=== PATIENT | female | born 1965 | race Caucasian/White ===

== ENCOUNTER 2024-12-01 08:46 | Outpatient (REF) | payer OTHER, SELFPAY ==
--- OUTSIDE RECORDS SUMMARY | 2024-12-01 08:59 | XMS_ITS | Data Portability ---
Author Organization [facility] Service Address [address] [place] [address] Assessment No assessment recorded. Plan of Treatment Reminders Order Date Submit Date Provider Last Modified By Organization Details Last Modified Time Details Appointments ANNUAL EXAM 2025 09:00A M ANTOINE CARABALLO Not available Not available Not available Lab MMRV immunity, serum or plasma 2024 025 [facility], [address] [place] [address], [id number], 08/11/2024 09:35:03 hbsab (hepatiti s B surface Ab) titer, serum 2024 025 [facility], [address] [place] [address], [id number], 08/11/2024 09:35:03 estradiol , serum 2024 025 [facility], [address] [place] [address], [id number], 08/11/2024 09:35:03 progester one, serum 2024 025 [facility], [address] [place] [address], [id number], 08/11/2024 09:35:02 lh + FSH, serum 2024 025 [facility], [address] [place] [address], [id number], 08/11/2024 09:35:03 estrogen, total, serum 2024 025 [facility], [address] [place] [address], [id number], 08/11/2024 09:35:03 prolactin , serum 2024 025 [facility], [address] [place] [address], [id number], 08/11/2024 09:35:02 testoster one, total, serum 2024 025 [facility], [address] [place] [address], [id number], 08/11/2024 09:35:03 CMP, serum or plasma 2024 025 [facility], [address] [place] [address], [id number], 08/11/2024 09:29:52 CBC w/ auto diff 2024 025 [facility], [address] [place] [address], [id number], 08/11/2024 09:29:52 lipid panel, blood 2024 025 [facility], [address] [place] [address], [id number], 08/11/2024 09:29:53 vitamin D, 25-hydrox y, total, serum 2024 025 [facility], [address] [place] [address], [address], 08/11/2024 09:29:52 TSH + free T4, serum 2024 025 [facility], [address] [place] [address], [id number], 08/11/2024 09:29:53 hemoglobi n A1c, QN, blood 2024 025 [facility], [address] [place] [address], [address], 08/11/2024 09:29:53 vitamin B12 + folate, serum or blood 2024 025 [facility], [address] [place] [address], [id number], 08/11/2024 09:29:53 lh + FSH, serum 2023 024 [facility] (Centralized Electronic Ordering - All Locations), Patient Can Go To The Location Of Their Choice, 08/06/2023 09:17:09 estradiol , serum 2023 024 [facility] (Centralized Electronic Ordering - All Locations), Patient Can Go To The Location Of Their Choice, 08/06/2023 09:17:08 progester one, serum 2023 024 [facility] (Centralized Electronic Ordering - All Locations), Patient Can Go To The Location Of Their Choice, 08/06/2023 09:17:08 prolactin , serum 2023 024 [facility] (Centralized Electronic Ordering - All Locations), Patient Can Go To The Location Of Their Choice, 08/06/2023 09:17:08 CMP, serum or plasma 2023 024 [facility] (Centralized Electronic Ordering - All Locations), Patient Can Go To The Location Of Their Choice, 10/04/2023 16:59:42 CBC w/ auto diff 2023 024 [facility] (Centralized Electronic Ordering - All Locations), Patient Can Go To The Location Of Their Choice, 08/06/2023 09:17:08 lipid panel, blood 2023 024 [facility] (Centralized Electronic Ordering - All Locations), Patient Can Go To The Location Of Their Choice, 10/04/2023 16:59:42 TSH + free T4, serum 2023 024 [facility] (Centralized Electronic Ordering - All Locations), Patient Can Go To The Location Of Their Choice, 10/04/2023 16:59:42 vitamin D, 25-hydrox y, total, serum 2023 024 [facility] (Centralized Electronic Ordering - All Locations), Patient Can Go To The Location Of Their Choice, 08/06/2023 09:17:08 hemoglobi n A1c, QN, blood 2023 024 [facility] (Centralized Electronic Ordering - All Locations), Patient Can Go To The Location Of Their Choice, 08/06/2023 09:17:08 CMP, serum or plasma 2022 023 [facility] (Centralized Electronic Ordering - All Locations), Patient Can Go To The Location Of Their Choice, 07/31/2022 11:15:22 CBC w/ auto diff 2022 023 [facility] (Centralized Electronic Ordering - All Locations), Patient Can Go To The Location Of Their Choice, 07/31/2022 11:15:23 lipid panel, blood 2022 023 [facility] (Centralized Electronic Ordering - All Locations), Patient Can Go To The Location Of Their Choice, 07/31/2022 11:15:23 vitamin D, 25-hydrox y, total, serum 2022 023 [facility] (Centralized Electronic Ordering - All Locations), Patient Can Go To The Location Of Their Choice, 07/31/2022 11:15:23 hemoglobi n A1c, QN, blood 2022 023 [facility] (Centralized Electronic Ordering - All Locations), Patient Can Go To The Location Of Their Choice, 07/31/2022 11:15:23 vitamin B12 + folate, serum or blood 2022 023 [facility] (Centralized Electronic Ordering - All Locations), Patient Can Go To The Location Of Their Choice, 07/31/2022 11:15:22 magnesium , serum or plasma 2022 023 [facility] (Centralized Electronic Ordering - All Locations), Patient Can Go To The Location Of Their Choice, 07/31/2022 11:15:22 TSH + free T4, serum 2022 023 [facility] (Centralized Electronic Ordering - All Locations), Patient Can Go To The Location Of Their Choice, 07/31/2022 11:10:35 CBC w/ auto diff 2020 021 [facility], [address] [place], [address], 02/07/2021 09:45:53 CMP, serum or plasma 2020 021 [facility], [address] [place], [address], 02/07/2021 09:45:53 lipid panel, serum 2020 021 [facility], [address] [place], [address], 02/07/2021 09:45:52 Referral None recorded. Procedures None recorded. Surgeries None recorded. Imaging US, echocardi ogram 2021 022 [email or web address] [facility] (Outt Non-Invasive Cardiology Scheduling), [address] [place], [address], 03/23/2022 08:39:20 exercise stress test 2021 022 [email or web address] 10 [facility] (Outt Non-Invasive Cardiology Scheduling), [address] [place], [address], 04/03/2022 08:47:12 US, carotid artery 2021 022 [facility] (Outt Non-Invasive Cardiology Scheduling), [address] [facility], [place], [address], 03/23/2022 08:39:20 Medication Orders ProAir HFA 90 mcg/actua tion aerosol inhaler 2024 025 [facility], [address] [place] [address], [address], 08/11/2024 09:21:21 epinephri ne 0.3 mg/0.3 mL injection , auto-inje ctor 2024 025 [facility], [address] [place] [address], [address], 08/11/2024 09:21:23 ProAir HFA 90 mcg/actua tion aerosol inhaler 2023 024 [facility], [address] [place] [address], [address], 08/06/2023 09:06:40 epinephri ne 0.3 mg/0.3 mL injection , auto-inje ctor 2023 024 [facility], [address] [place] [address], [id number], 08/06/2023 09:06:39 ProAir HFA 90 mcg/actua tion aerosol inhaler 2022 023 [facility], [address] [place] [address], [address], 07/31/2022 10:58:43 ProAir HFA 90 mcg/actua tion aerosol inhaler 2020 021 [id number], [address] [place] [address], [id number], 02/07/2021 09:39:06 epinephri ne 0.3 mg/0.3 mL injection , auto-inje ctor 2020 021 [id number], [address] [place], [place], [id number], 02/07/2021 09:39:05 Patient TargetsNo targets recorded. Patient Instructions Encounter Date Encounter Id Patient Instructions Last Modified By Organization Details Last Modified Time 02/07/2021 [id number] pulse oximetry* [email or web address] Not available 02/07/2021 09:38:58 07/31/2022 [id number] pulse oximetry* [email or web address] Not available 07/31/2022 10:58:35 Reason for Referral None Reported. Results Created Date Observation Date Name Description Value Unit Range Abnormal Flag Note LastModifiedBy Organization Detail LastModifiedTime 02/08/20 21 02/07/2021 pulse oxime try* Result 98 Not Available [facility] [address] [facility] [address], [place], [address], 02/07/2021 09:33:12 07/31/19 23 07/31/2022 pulse oxime try* Result 98 Not Available [facility] [address] [facility] [address], [place], [address], 07/29/2022 11:28:11 11/22/19 22 11/21/2021 MAMMO , scree amalia, digit al, bilat eral No observ ation record ed. [email or web address] [facility] [address] [place] [address], [address], 11/21/2021 10:15:18 Result Notes None recorded. Problems Name Problem SNOMED Code Status Onset Date Resolution Date Notes Provider Name and Address Organization Details Recorded Time Hypothyroi dism 68796370 Active 2017 Not Available [facility] 12:10:18 Scoliosis of thoracic spine 149773953 Active 2017 Not Available [facility] 12:10:18 Asthma 842390525 Active 2018 Not Available [facility] 07/31/202 1 12:10:18 Menopause Active 2023 ANTOINE CARABALLO [address] [place], [address], [facility] 4 09:09:39 Acute sinusitis 08482113 Active 2023 ANTOINE CARABALLO [address] [place], [address], [facility] 4 11:03:26 Perimenopa usal disorder 884725920 Active 2024 ANTOINE CARABALLO [address] [place], [address], [facility] 5 09:32:32 Essential hypertensi on 20209910 Active 2017 Not Available [facility] 1 12:10:18 Obesity 896546537 Active 2017 Not Available [facility] 12:10:18 Problem Notes None recorded. Procedures Surgical History Date Name Laterality Status Provider Name and Address Organization Details Recorded Time 03/17/19 66 Most Recent Mammogram completed Ruthannliliana Ragsdale [facility] 02/21/2019 15:21:17 Tonsillectomy completed Ruthannliliana Ragsdale [facility] 02/21/2019 15:23:48 excision of cyst completed Ruthannliliana [facility] 02/21/2019 15:24:17 Imaging Results Imaging Date Name Status LastModified by Organiz ation Details LastModified Time 11/21/2021 MAMMO, screening, digital, bilateral completed [email or web address] [facility] [address] [place] [address], [address], 11/21/2021 10:15:18 Procedure Notes None recorded. Medical Equipment None Reported. Allergies Allergen ID Allergen Name Allergen Category Reaction Reaction Severity Criticality Documentation Date Start Date Code Code System Note Provider Name and Address Organization Details Recorded Time 1862 Product containin g penicilli n (product) medicatio n rash Not available Not available 02/04/2018 [address] [facility] 8 14:02:58 3295 phenol medicatio n Not available Not available Not available 02/21/2019 144[address] Rx[address] [facility] 9 15:24:35 3296 nickel environme nt Not available Not available Not available 02/21/2019 97493 29 RxNorm [address] [facility] 9 15:24:46 3313 nut - unspecifi ed food anaphylax is Not available Not available 02/22/[id number] [facility] 9 14:23:23 Medications Name Sig Start Date Stop Date Status Note LastModified by Organization Details LastModified Time Erin Thyroid 60 mg tablet TAKE 1 TABLET BY MOUTH DAILY 02/07 completed Not Available Not Available Not Available prednisone 10 mg tablet take 4 tabs x 3 daystake 3 tabs x 3 daystake 2 tabs x 3 daystake 1 tab x 3 days 08/30 completed Not Available Not Available Not Available Erin Thyroid 90 mg tablet TAKE 1 TABLET BY MOUTH ONCE DAILY active Not Available Not Available No t Available azithromyci n 250 mg tablet TAKE 2 TABLETS BY MOUTH ON DAY 1, AND THEN TAKE 1 TABLET BY MOUTH ONCE A DAY ON DAY 2 THROUGH DAY 5 active Not Available Not Available No t Available nystatin 500,000 unit tablet TAKE 2 TABLETS BY MOUTH TWICE DAILY WITH FOOD active Not Available Not Available No t Available lidocaine-p rilocaine 2.5 %-2.5 % topical cream 02/07 completed Not Available Not Available Not Available Erin Thyroid 15 mg tablet TAKE 1 TABLET BY MOUTH EVERY MORNING 02/07 completed Not Available Not Available Not Available epinephrine 0.3 mg/0.3 mL injection, auto-inject or INJECT CONTENTS OF 1 PEN NEEDED FOR ALLERGIC REACTION active Not Available Not Available No t Available lisinopril 10 mg-hydrochl orothiazide 12.5 mg tablet 02/22 completed Not Available Not Available Not Available albuterol sulfate HFA 90 mcg/actuati on aerosol inhaler INHALE 2 PUFFS BY MOUTH EVERY 4 HOURS NEEDED FOR ASTHMA active Not Available Not Available No t Available losartan 50 mg-hydrochl orothiazide 12.5 mg tablet TAKE 1 TABLET BY MOUTH EVERY MORNING 07/31 completed Not Available Not Available Not Available Boostrix Tdap 2.5 Lf unit-8 mcg-5 Lf/0.5 mL intramuscul ar syringe 02/07 completed Not Available Not Available Not Available Benadryl prn active Not Available Not Avai lable Not Available multivitami n active Not Available Not Available Not Available Fluarix Quad (PF) 60 mcg (15 mcg x 4)/0.5 mL IM syringe 02/07 completed Not Available Not Available Not Available Afluria Quad (PF) 60 mcg (15 mcg x 4)/0.5 mL IM syringe 02/07 completed Not Available Not Available Not Available Fluarix Quad (PF) 60 mcg (15 mcg x 4)/0.5 mL IM syringe 02/07 completed Not Available Not Available Not Available BinaxNOW COVID-19 Ag Self Test kit TEST DIRECTED TODAY 08/06 completed Not Available Not Available Not Available Vitals Date Recorded Body weight Body mass index (BMI) Body height Heart rate Oxygen saturation Oxygen saturation in Arterial blood by Pulse oximetry Systolic blood pressure Diastolic blood pressure Provider Name and Address Organization Details Last Updated DateTime 1 914326. 96 g 51.4 kg/m2 153.67 cm 87 /min 98 % 98 % 122 mm[Hg] 80 mm[Hg] ANTOINE CARABALLO [address] [place], [address] [facility] 1 09:34:16 Date Recorded Body height Body mass index (BMI) Body weight Oxygen saturation Oxygen saturation in Arterial blood by Pulse oximetry Heart rate Systolic blood pressure Diastolic blood pressure Provider Name and Address Organization Details Last Updated DateTime 2 153.67 cm 51.2 kg/m2 350957. 37 g 98 % 98 % 78 /min 120 mm[Hg] 78 mm[Hg] Carol Monroy [facility] 2 09:04:24 Date Recorded Body height Body mass index (BMI) Body weight Heart rate Oxygen saturation Oxygen saturation in Arterial blood by Pulse oximetry Systolic blood pressure Diastolic blood pressure Provider Name and Address Organization Details Last Updated DateTime 3 153.67 cm 52.1 kg/m2 940365. 25 g 92 /min 98 % 98 % 142 mm[Hg] 90 mm[Hg] ANTOINE CARABALLO [address] [place], [address] [place] [address] Internal Medicine 3 10:44:34 Date Recorded Body weight Heart rate Oxygen saturation Oxygen saturation in Arterial blood by Pulse oximetry Systolic blood pressure Diastolic blood pressure Provider Name and Address Organization Details Last Updated DateTime 4 568472. 35 g 71 /min 99 % 99 % 122 mm[Hg] 79 mm[Hg] Gabby Austin [facility] 4 09:00:27 Date Recorded Body height Body mass index (BMI) Body weight Heart rate Oxygen saturation Oxygen saturation in Arterial blood by Pulse oximetry Systolic blood pressure Diastolic blood pressure Provider Name and Address Organization Details Last Updated DateTime 5 153.67 cm 51.9 kg/m2 632551. 66 g 78 /min 100 % 100 % 152 mm[Hg] 98 mm[Hg] Olesya Domenico [facility] 5 09:11:22 Social History Question Answer Notes LastModified by Organizat ion Details LastModified Time Tobacco Smoking Status Never Smoker Not Available [email or web address] 05/28/2020 03:36:23 What Was The Date Of Your Most Recent Tobacco Screening? 08/11/2024 [email or web address] Information not available 08/11/2024 Do You Or Have You Ever Used Any Other Forms Of Tobacco Or Nicotine? No [email or web address] Information not available 07/31/2022 Sex: Unknown Functional Status None recorded. Mental Status None recorded. Family History Relationship Description Onset Age of this Age Resolved Age Notes LastModified by Organization Details LastModified Time Father Myocardial infarction 79 [email or web address] Not available 01/25 14:52:07 Father Renal failure syndrome 84 [email or web address] Not available 2024 09:22:52 Mother Dementia 82 [email or web address] Not available 0 08/11/2024 09:23:31 Medical History Condition Response Coronary Artery Disease N Gout N Other N Kidney Stones N Blood Diseases N Blood Transfusion N Breast Cancer N Lung Disease N Depression N COPD N Defects or Inherited Disease N Anxiety Disorder N Muscle, Joint, or Bone Problems N Obesity N Vision or Eye Problems N Arthritis N Infertility N Polyps N Mental Disorder N Cancer N Stroke N Varicosities N Endometriosis N Bladder or Kidney Problems N High Cholesterol N Liver Disease N Fibromyalgia N Headaches N Kidney Disease N Allergies/Hayfever N Heart Problems N Hospitalizations N Thyroid Problems N GI Problems N Eating Disorder N Skin Problems N Anemia N MRSA exposure N Constipation N Mental Illness N Diabetes N Ovarian Cancer N Seizures/Epilepsy N Tuberculosis N Congestive Heart Failure (CHF) N Eczema N Abuse/Domestic Violence N Diverticulitis N Asthma N Reflux/GERD N Hepatitis N Heart Disease N Pulmonary Embolism N Hypertension N Chicken Pox N Autism Spectrum Disorder (ASD) N Osteoporosis N Gynecological History Statement/Question Response Most Recent Mammogram 1966 Obstetrics History GPAL:G 0 P 0 0 0 0 Immunizations Vaccine Type Date Status Note Provider Nam e and Address Organization Details Recorded Time COVID-19, mRNA, LNP-S, PF, 30 mcg/0.3 mL dose 1 completed Dinesh Mcclellan DO [address] [place] [address], [address], [facility] 02/23/2021 06:31:04 COVID-19, mRNA, LNP-S, PF, 30 mcg/0.3 mL dose 1 completed Dinesh Mcclellan DO [address] [place] [address], [address], [facility] 03/15/2021 17:47:01 Influenza, split virus, quadrivalent, preservative 1 completed [facility] 03/18/2022 08:25:21 influenza, unspecified formulation 2 completed ANTOINE CARABALLO [address] [place], [address], [facility] 07/31/2022 10:43:30 influenza, unspecified formulation 3 completed [facility] 05/17/2023 07:09:29 Influenza, recombinant, trivalent, PF 4 completed Olesya Acuña [facility] 05/09/2024 08:59:44 Tdap 2 completed FERMIN Grant [address] [place], [address], [facility] 02/22/2019 14:44:02 Tdap 9 completed Jones gonzales [facility] 04/29/2019 15:46:24 Influenza, split virus, quadrivalent, preservative 9 completed Gabby Gencarelle janet, [facility] 02/07/2021 09:28:41 Influenza, split virus, quadrivalent, preservative 0 completed Gabby Gencarelle janet, [facility] 02/07/2021 09:28:41 Influenza, split virus, quadrivalent, preservative 8 completed [facility]by [facility] 02/07/2021 09:28:41 Past Encounters Encounter ID Performer Location Encounter Start Date Encounter Closed Date Diagnosis/Indication Diagnosis SNOMED-CT Code Diagnosis ICD10 Code Diagnosis Note [id number] Dinesh Mcclellan [facility] [address] [facility] [address] 02/04/2018 13:55:03 02/04/2018 15:16:18 Essential hypertension 62094490 I10 elevated today likely 2/2 sudafed d/c sudafed Obesity 356154109 E66.9 Acute sinusitis 53069685 J01.90 mucinex-dm flonase [id number] Dinesh Mcclellan [facility] [address] [facility],[place] [address] 02/22/2019 14:12:35 02/22/2019 15:01:52 Adult health examination 636983215 Z00.00 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 - zaida dyson/jacob colindres but she only sees her every 5 years she is scheduled for end february for pap and mammo cycle started 02/18/19 - irregular now Screening for malignant neoplasm of colon 399415325 Z12.11 aware of risks of not screening for colon cancer, refuses AMA no fhx of colon cancer refuses even to do stool cards Body mass index 40+ - severely obese 726102988 Z68.43 Hypothyroidism 53552917 E03.9 sees integrativ e med had labs all normal Essential hypertension 55698585 I10 stable, slightly high diastolic - will monitor continue current dose [id number] Dinesh Mcclellan [facility] [address] [facility],[place] [address] 03/14/2019 15:38:27 03/14/2019 16:15:33 Asthma 358102263 J45.909 Obesity 954469583 E66.9 Essential hypertension 43915787 I10 elevated likely 2/2 infection monitor Acute exac erbation of asthma 476503781 J45.901 treatment as above uri sx suggestive of viral infection [id number] Dinesh Mcclellan DO [facility] [address] [facility],[place] [address] 08/30/2019 15:40:15 08/30/2019 16:27:15 Asthma 609913255 J45.909 quiet Obesity 561263178 E66.9 Essential hypertension 97217116 I10 stable 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.05XS sun flower seeds, almonds, Screening procedure 2013 5006 Z13.9 [id number] Dinesh Mcclellan DO [facility] [address] [facility],[place] [address] 02/07/2021 09:27:48 02/07/2021 11:44:06 Asthma 036355510 J45.909 stable, needs refill 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 175222276 T78.05XA stable, needs refill Adult heal th examination 397937371 Z00.00 BP is excellentw eight is downeating well, cutting out unnecessar y calories Hypothyroidism 61708475 E03.9 needs recheck [id number] ANTOINE CARABALLO [facility] [address] [facility],[place] [address] 03/20/2022 08:57:06 03/20/2022 09:34:14 Active or passive immunization 273884998 Z23 advised Adult heal th examination 350211897 Z00.00 BP is excellent > would like to cut it in half, agreed to a trialweigh t is downeating well, cutting out unnecessar y calories Family his tory of Cardiovascular disease 854342128 Z82.49 will fu with cardiac testing [id number] Dinesh Mcclellan [facility] [address] [facility],[place] [address] 07/31/2022 10:20:06 07/31/2022 15:10:52 Active or passive immunization 369222696 Z23 advised Adult heal th examination 936649223 Z00.00 will recheck lab-workwo uld like to stop BP and see how she doesher BP is very normal at home Asthma 122919219 J45.20 stable, needs refill Hypothyroidism 07629905 E03.8 needs recheck [id number] Dinesh Mcclellan [facility] [address] [facility],[place] [address] 08/06/2023 08:53:20 08/06/2023 09:18:15 Asthma 041137385 J45.20 stable, needs refill Essential hypertension 95710892 I10 stableexce llent control Hypothyroidism 90977233 E03.8 needs recheck 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 293305553 T78.05XA stable, needs refill Asthma 744980224 J45.20 stable, needs refill Perimenopa usal disorder 383599150 N95.9 Health Concerns Section Related Observation LastModified by Organization Detai ls LastModified Time None Recorded Concern Status LastModified by Organization Details LastModified Time None Recorded Advance Directives Directive None Recorded Payers Encounter Date Sequence Insurance Name Policy Number Policy Tran Covered Member ID Tran Member ID Guarantor Name 02/07/2021 1 [facility] [id number] Lavonne Ching Enrike z [id number] Lavonne Ching Ember 03/20/2022 1 [facility] [id number] [id number] Lavonne Ching Enrike z [id number] Lavonne Ching Ember 07/31/2022 1 [facility] [id number] [id number] Lavonne Ching Enrike z [id number] Lavonne Ching Ember 08/06/2023 1 [facility] [id number] [id number] Lavonne Ching Enrike z [id number] Lavonne Ching Ember 08/11/2024 1 [facility] [id number] [id number] Lavonne Ching Enrike z [id number] Lavonne Ching Ember Notes Date Note Type Note Provider Name a nd Address Organization Details Recorded Time 1 text/html Annual WellnessReported bypatient.Diet and Nutrition:healthy diet; discussed vitamin and supplement use; discussed portion control; discussed maintaining calcium balance; discussed diet improvement; does not add salt does report that ice cream occasionally Fracture Risk:no history of fractures; no recent explained fracture; no sudden unexplained fractures; no previous musculoskeletal injuries Physical Activity:does not exercise on a regular basis;decreased physical activity;poor physical condition; discussed weightbearing activities; 10 hours sitting for work Additional Lifestyle Factors:no tobacco use; no alcohol intake; second hand smoke from her mother Depression Risk:never feels sad, empty, or tearful; no loss of interest in activities; no significant changes in weight; no sleep disturbances or insomnia; no agitation; no loss of energy; no feelings of worthlessness or guilt; no thoughts of suicide; no history of depression; no history of mood disorders Hearing:no loss of hearing; the patient had childhood issues, ruptured an ear drum right side Vision:no vision problems; 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 appt was recent retinoschisis of the right eye fus with her eye dr for these conditions down in weight about 8 to ten pounds with diet modification BP is excellent ANTOINE CARABALLO [address] [place], [phone], [facility] 02/07/2021 09:54:09 2 text/html Annual WellnessReported bypatient.Diet and Nutrition:healthy diet; discussed vitamin and supplement use; discussed portion control; discussed maintaining calcium balance; discussed diet improvement Fracture Risk:no history of fractures; no recent explained fracture; no sudden unexplained fractures; no previous musculoskeletal injuries Physical Activity:exercises on a regular basis; recent increase in physical activity; good physical condition Additional Lifestyle Factors:no tobacco use; drinks alcohol (mild-moderate) Depression Risk:never feels sad, empty, or tearful; no loss of interest in activities; no significant changes in weight; no sleep disturbances or insomnia; no agitation; no loss of energy; no feelings of worthlessness or guilt; no thoughts of suicide; no history of depression; no history of mood disorders Hearing:no loss of hearing Vision:no vision problems the patient was gardening and has a rash (not poison ludivina) of her lower right leg ANTOINE CARABALLO [address] [place] [address], [phone], [facility] 03/20/2022 09:33:16 3 text/html Annual WellnessReported bypatient.Diet and Nutrition:diet is high in fat, low in fiber;high carbohydrate meals; discussed vitamin and supplement use; discussed portion control; discussed maintaining calcium balance; discussed diet improvement Fracture Risk:no history of fractures; no recent explained fracture; no sudden unexplained fractures; no previous musculoskeletal injuries Physical Activity:exercises on a regular basis; recent increase in physical activity; good physical condition; discussed weightbearing activities; discussed exercise habits Additional Lifestyle Factors:no tobacco use; drinks alcohol (mild-moderate) Depression Risk:never feels sad, empty, or tearful; no loss of interest in activities; no significant changes in weight; no sleep disturbances or insomnia; no agitation; no loss of energy; no feelings of worthlessness or guilt; no thoughts of suicide; no history of depression; no history of mood disorders Hearing:no loss of hearing Vision:no vision problems no new allergies HTN: will recheck, tends to fluctuate in a doctors office ANTOINE CARABALLO [address] [place], [phone], [facility] 07/31/2022 11:11:22 4 text/html Annual WellnessReported bypatient.Diet and Nutrition:healthy diet; discussed vitamin and supplement use; discussed portion control; discussed maintaining calcium balance; discussed diet improvement Fracture Risk:no history of fractures; no recent explained fracture; no sudden unexplained fractures; no previous musculoskeletal injuries Physical Activity:exercises on a regular basis; recent increase in physical activity; good physical condition; discussed weightbearing activities; discussed exercise habits Additional Lifestyle Factors:no tobacco use; drinks alcohol (mild-moderate) Depression Risk:never feels sad, empty, or tearful; no loss of interest in activities; no significant changes in weight; no sleep disturbances or insomnia; no agitation; no loss of energy; no feelings of worthlessness or guilt; no thoughts of suicide; no history of depression; no history of mood disorders Hearing:no loss of hearing Vision:no vision problems ANTOINE CARABALLO [address] [place] [address], [phone], [facility] 08/06/2023 09:14:46 5 text/html Annual WellnessReported bypatient.Diet and Nutrition:healthy diet; discussed vitamin and supplement use; discussed portion control; discussed maintaining calcium balance; discussed diet improvement Fracture Risk:no history of fractures; no recent explained fracture; no sudden unexplained fractures; no previous musculoskeletal injuries Physical Activity:exercises on a regular basis; recent increase in physical activity; good physical condition Additional Lifestyle Factors:no tobacco use Depression Risk:never feels sad, empty, or tearful; no loss of interest in activities; no significant changes in weight; no sleep disturbances or insomnia; no agitation; no loss of energy; no feelings of worthlessness or guilt; no thoughts of suicide; no history of depression; no history of mood disorders Hearing:no loss of hearing Vision:no vision problems ANTOINE CARABALLO [address] [place], [phone], [facility] 08/11/2024 09:34:33 OBGyn Episode No OBEpisode recorded.
[2024-12-01 13:08] LABS: MANUAL DIFF FLAG NO
[2024-12-01 13:24] LABS: Basophils Percent Auto 0.5 % (0-2); Eosinophils Absolute Auto 0.2 X10*3/uL (0.0-0.4); Eosinophils Percent Auto 2.5 % (0-4); Imm Gran Abs Auto 0.01 X10*3/uL (0.00-0.03); Imm Gran Pct Auto 0.2 % (0.0-0.4); Lymphocytes Absolute Auto 1.7 X10*3/uL (1.2-4.9); Lymphocytes Percent Auto 26.2 % (20-40); Mean Corpuscular HGB Conc 32.5 g/dl (31.0-35.0); Mean Corpuscular Hemoglobin 28.6 pg (27.0-33.0); Mean Corpuscular Volume 88.1 fL (80.0-98.0); Monocytes Absolute Auto 0.4 X10*3/uL (0.1-1.2); Monocytes Percent Auto 6.6 % (2-11); Neutrophils Absolute Auto 4.1 x10*3/uL (2.0-8.3); Platelet Count 280 X10*3/uL (160-400); Red Blood Count 4.54 X10*6/uL (4.20-5.50); White Blood Count 6.4 X10*3/uL (4.8-10.8)
[2024-12-01 13:50] LABS: Alanine Aminotransferase 15 U/L (0-31); Alkaline Phosphatase 73 U/L (39-117); Anion Gap 10 (12-20); Aspartate Amino Transferase 22 U/L (5-31); Bilirubin Total 0.5 mg/dL (0.0-1.0); Blood Urea Nitrogen 14 mg/dL (9-16); Calcium 9.1 mg/dL (8.4-10.2); Carbon Dioxide 29 mmol/L (22-29); Chloride 103 mmol/L (96-108); Cholesterol 192 mg/dL (<200); Estimated Glomerular Filt Rate > 60; Glucose Random 85 mg/dL (60-115); HDL Cholesterol 50 mg/dL (>40); LDL Cholesterol Calculated 127 mg/dL (<100); Potassium 4.2 mmol/L (3.3-5.1); Sodium 138 mmol/L (135-145); Total Protein 6.7 g/dL (6.5-8.0); Triglycerides 75 mg/dL (<150)
[2024-12-01 14:18] LABS: Free T4 (Free Thyroxine) 0.82 ng/dL (0.71-1.85); Thyroid Stimulating Hormone 0.97 uIU/mL (0.32-4.0); Vitamin D 25-OH Total 14.2 ng/mL (>30)
[2024-12-01 14:23] LABS: Folate 7.2 ng/mL (> or = 4.0); Vitamin B12 277 pg/mL (200-900)
[2024-12-01 14:34] LABS: Estimated Average Glucose 108 mg/dL; Hemoglobin A1C 111.9177 umol/L; Hemoglobin A1c % 5.4 % (<6.0); Total Hemoglobin (HGBA1C) 3125.8984 umol/L
[2024-12-02 03:55] LABS: HBS Num1 0.69 mIU/mL (0-7.99); ~Hepatitis B Surface Antibody NONREACTIVE (Nonreactive)
[2024-12-02 11:09] LABS: Follicle Stimulating Hormone 26.6 mIU/mL; Lutenizing Hormone 19.2 mIU/mL; Prolactin 5.5 ng/mL
[2024-12-04 18:32] LABS: Mumps Virus IgG Antibody <9.00 AU/mL; Rubella IgG Antibody 1.06 Index; Varicella IgG Antibody 4.35 S/CO
[2024-12-05 22:29] LABS: Estrogen 162 pg/mL
[2024-12-07 15:18] LABS: Testosterone, Total 29 ng/dL (2-45)
[2024-12-14 03:27] LABS: Estradiol Free 0.67 pg/mL; Estradiol, Ultrasensitive 32 pg/mL
== END 2024-12-01 08:47 | disposition home or self-care (01) ==
LOC: HO.MANLDS 08:46
PROVIDERS: Visit Provider Physician Assistant
DX: Z00.00 Encounter for general adult medical examination without abnormal findings (principal); Z13.6 Encounter for screening for cardiovascular disorders; Z13.1 Encounter for screening for diabetes mellitus; N95.9 Unspecified menopausal and perimenopausal disorder
CPT/HCPCS: 36415; 80053; 80061; 82306; 82607; 82670; 82672; 82681; 82746; 83001; 83002; 83036; 84144; 84146; 84403; 84439; 84443; 85025; 86706; 86735; 86762; 86765; 86787